=== PATIENT | male | born 1995 | race Caucasian/White ===

== ENCOUNTER 2016-12-05 22:14 | Emergency (ER) | payer BC ==
[~2016-12-05] VITALS: Ht 180.3 cm; Wt 84.2 kg
[~2016-12-05 22:14] MED LIST: NSNN50 NAE
[2016-12-05 22:19] VITALS: TEMP 36.4; Ht 180.3 cm; Wt 84.2 kg
[2016-12-05] MEDS ORDERED: EPINEPHRINE ADULT AUTO-INJECT 0.3 MG SYR IM STA (22:24)
[2016-12-05] MEDS ORDERED: METHYLPREDNISOLONE 125 MG VIAL IV STA (22:24)
[2016-12-05] MEDS ORDERED: RANITIDINE HCL 50 MG/100 ML D5W IV STA (22:24)
[2016-12-05 22:28] VITALS: O2SAT 93
[2016-12-05] MEDS ORDERED: EPP3/2 IM (22:44)
[2016-12-06] MEDS ORDERED: PRED50TA PO (00:27)
[2016-12-06] MEDS ORDERED: EPINEPHRINE ADULT AUTO-INJECT 0.3 MG SYR ONE (00:37)
[2016-12-06 00:39] VITALS: BP 127/71; PULSE 96; O2SAT 97
--- NOTE | 2016-12-06 03:20 | EMERGENCY ROOM VISIT NOTE ---
History First contact with patient: 22:22 Chief Complaint: ALLERGIC REACTION Stated Complaint: ALLERGIC REACTION Nursing Triage Summary: patient brought in by ems patient felt throat tight and took benadryl at home then took epipen patient red all over,reports throat swelling and tightness,patient reports feeling slightly better History of Present Illness The patient is a 21 year old male who presents to the Emergency Room with complaints of allergic reaction tonight while eating dinner at [facility]. Patient has a nut allergy and was eating m[place] fries. He had chest tightness throat tightness and was red and itchy and took his EpiPen that was . Some of his symptoms improved. EMS gave Benadryl. Patient states he feels slightly better now. Patient denies any chest tightness or throat tightness. Patient complains of the rash and itchiness. Patient denies fever, chills, cough, congestion, feeling of impending doom, dyspnea, facial swelling. He is tolerating by mouth fluids. Review of Systems See HPI for pertinent positives & negatives. A total of 10 systems reviewed and were otherwise negative. Past Medical/Surgical History Not allergy Social History Smoking Status: Never Smoker Smokeless Tobacco Use: No Alcohol Use: occasionally Drug Use: none Current/Historical Medications Scheduled Prednisone (Prednisone), 50 MG PO DAILY Scheduled PRN Epinephrine (Epipen), 0.3 MG IM UD PRN for ALLERGIC REACTION Allergies Coded Allergies: NUTS (Verified Allergy, Severe, PEANUTS AND TREE NUTS, 09/17/15) PRIOR ENTRY: ANAPHYLAXIS FROM PEANUTS Physical Exam Vital Signs Date Time Temp Pulse Resp B/P Pulse Ox O2 Delivery O2 Flow Rate FiO2 12/06/16 00:39 96 16 127/71 97 Room Air 12/06/16 00:23 90 18 115/52 97 Room Air 12/05/16 23:24 94 20 117/55 96 Room Air 12/05/16 22:28 93 Room Air 12/05/16 22:28 93 Room Air 12/05/16 22:22 126 12/05/16 22:19 36.4 139 20 128/62 95 Room Air 12/05/16 22:19 95 Room Air Pain Rating (0-10): 0 Physical Exam VITALS: Vitals are noted on the nurse's note and reviewed by myself. Vital signs tachycardic GENERAL: Pleasant male slightly anxious-appearing, in no acute distress, nondiaphoretic, well-developed well-nourished. SKIN: The skin was erythematous without edema, or bruising. There is no tenting of the skin. Capillary reflex less than 2 seconds. HEAD: Normocephalic atraumatic. EARS: External auditory canals clear, tympanic membranes pearly peterson without erythema or effusion bilaterally. EYES: Pupils equal round and reactive to light and accommodation. Conjunctivae without injection, sclerae without icterus. Extraocular movements intact. NOSE: Patent, turbinates without inflammation or discharge. MOUTH: Mucous membranes moist. No lip or facial swelling Pharynx without erythema or exudate. Uvula midline. Airway patent. Tongue does not deviate. NECK: Supple without nuchal rigidity. No lymphadenopathy. No thyromegaly. Cervical spine is nontender. No JVD. HEART: Regular rate and rhythm without murmurs gallops or rubs. LUNGS: Clear to auscultation bilaterally without wheezes, rales or rhonchi. No dullness to percussion. No retractions or accessory muscle use. ABDOMEN: Positive bowel sounds x 4. Normal tympanic percussion. Soft, nontender, without masses or organomegaly. Jung sign negative. No guarding or rebound tenderness. MUSCULOSKELETAL: No muscle atrophy, erythema, or edema noted. NEURO: Patient was alert and oriented to person place and time. Normal sensation to light and sharp touch. No focal neurological deficits. Medical Decision & Procedures Medications Administered Medications (Trade) Dose Ordered Sig/Maria Teresa Route Start Time Stop Time Status Last Admin Dose Admin Ranitidine HCl (zANTac IV) 50 mg NOW STAT IV 12/05/16 22:24 12/05/16 22:26 DC 12/05/16 22:29 50 MG Methylprednisolone Sodium Succinate (Solu-Medrol IV) 125 mg NOW STAT IV 12/05/16 22:24 12/05/16 22:26 DC 12/05/16 22:29 125 MG Epinephrine (Epipen) 0.3 mg NOW STAT IM 12/05/16 22:24 12/05/16 22:26 DC 12/05/16 22:24 0.3 MG ED Course Prior records/ancillary studies reviewed. Triage Nursing notes reviewed. Additional history obtained from EMS. The patient's history was concerning for possible allergic reaction. Differential diagnosis: Etiologies such as allergic reaction, anaphylaxis, urticaria, Herrera-Davon syndrome, toxic epidermal necrolysis, erythema multiforme, cellulitis, as well as others were entertained. Physical examination: As above. ER treatment provided: Continuous cardiac monitoring Zantac 50 mg IV Decadron 10 mg IV On reassessment the patient felt better. Diagnostic interpretation by me: Deferred It appears the patient had an allergic reaction. The above treatment did well to reverse the symptoms. After prolonged monitoring and frequent reassessments the patient did very well and symptoms resolved. The patient was counseled on the spectrum of this disease process and told to avoid potential triggers. I gave my usual and customary discussion regarding this issue. By the evaluation outlined above emergent etiologies such as recurring anaphylaxis, anaphylatic shock, airway compromise, Herrera-Davon syndrome, toxic epidermal necrolysis, erythema multiforme, infectious etiologies, as well as others were deemed relatively unlikely. The pt informed about the findings as listed above. All questions were answered and pleased with the treatment. Return instructions were outlined and the patient was discharged in stable condition. Outpatient prescription management: EpiPen prednisone Referral: The patient was referred back to primary care physician for follow-up in 2-3 days for a recheck of the current condition. Medical Decision As above Impression Primary Impression: Anaphylaxis Departure Information Dispostion Home / Self-Care Condition GOOD Prescriptions Prednisone (Prednisone) 50 Mg Tab 50 MG PO DAILY for 4 Days, #4 TAB Prov: Brook Mays ., APRIL 12/06/16 Referrals No Doctor, Assigned (PCP) Forms HOME CARE DOCUMENTATION FORM, IMPORTANT VISIT INFORMATION Patient Instructions [facility], ED Allergic Reaction General Other Additional Instructions DO NOT drive, drink alcohol, operate machinery, or perform dangerous activities today. You were given medications in the ER that can affect your ability to safely function or operate a vehicle. Epi-Pen: Use one injection as instructed for severe allergic reactions associated with shortness of breath, difficulty breathing, or throat or tongue swelling. If you use this injection call 911 or proceed immediately to the nearest Emergency Room. Prednisone 50mg: Once daily until the prescription is finished. It is best to take this earlier in the day as some patients note occasional difficulty falling asleep when taken in the late evening. Diphenhydramine(Benadryl) 25mg: use 25 to 50 mg every six hours for swelling, itching, or hives. This medication is sedating and will cause drowsiness. Avoid alcohol, operating machinery or dangerous equipment, working on ladders or roofs, DRIVING, or situations where being under the influence may be dangerous. Zantac 75: Take two pills twice a day along with Benadryl as needed for swelling , itching, or hives. Most people know this for its affect on the stomach, but it also acts similar to, but less potent than Benadryl for allergic reactions. Both the Benadryl and the Zantac are available [id number]. Continue current medications. Return to the emergency department for worsening of your rash, swelling of your face, lips, tongue, or throat, difficulty breathing, vomiting, or as needed. Follow-up with your primary care physician in 2 to 3 days for a recheck of your current condition. Problem Qualifiers Primary Impression: Anaphylaxis Encounter type: initial encounter Qualified Codes: T78.2XXA - Anaphylactic shock, unspecified, initial encounter
== END 2016-12-06 00:44 | disposition home or self-care (01) ==
LOC: EDBD 22:14 → C.EDA 22:17
DX: T78.2XXA Anaphylactic shock, unspecified, initial encounter (principal); X58.XXXA Exposure to other specified factors, initial encounter